=== PATIENT | female | born 1990 | race Caucasian/White ===

== ENCOUNTER 2017-05-23 19:54 | Emergency (ER) | payer BC, OTHER ==
[~2017-05-23] VITALS: Ht 170.2 cm; Wt 88.2 kg
[~2017-05-23 19:54] MED LIST: DIAZ5TAB PO
[2017-05-23 20:19] VITALS: BP 134/74
[2017-05-23 20:55] LABS: CLARITY,URINE CLEAR (Clear); COLOR,URINE YELLOW (Yellow); GLUCOSE, URINE NEGATIVE (Neg); KETONES,URINE NEGATIVE (Neg); LEUKOCYTE ESTERASE ,URINE NEGATIVE (Neg); NITRITES, URINE NEGATIVE (Neg); OCCULT BLOOD,URINE NEGATIVE (Neg); PH,URINE 6.5 (4.8-8.0); PROTEIN,URINE NEGATIVE (Neg); UROBILINOGEN,URINE 0.2 E.U/dL (0.2-1.0)
[2017-05-23 20:55] LABS: BASOPHILS % (AUTO) 0.3 % (0-1); EOSINOPHILS # (AUTO) 0.3 X10'3 (0-0.9); EOSINOPHILS % (AUTO) 2.4 % (0-6); HEMATOCRIT 41.5 % (35.0-45.0); HEMOGLOBIN 14.1 g/dl (12.0-16.0); LYMPHOCYTES # (AUTO) 3.7 X10'3 (1.1-4.8); LYMPHOCYTES % (AUTO) 32.7 % (21-51); MEAN CORPUSCULAR HEMOGLOBIN 27.1 PG (27.0-31.0); MEAN CORPUSCULAR HGB CONC 33.9 % (33.0-36.5); MEAN CORPUSCULAR VOLUME 79.9 FL (78-98); MEAN PLATELET VOLUME 6.9 FL (7.4-10.4); MONOCYTES # (AUTO) 0.7 X10'3 (0-0.9); MONOCYTES % (AUTO) 6.5 % (2-12); NEUTROPHILS # (AUTO) 6.6 X10'3 (1.8-7.7); NEUTROPHILS % (AUTO) 58.1 % (42-75); PLATELET COUNT 257 X10'3 (140-440); RED BLOOD COUNT 5.19 X10'6 (4.20-5.60); WHITE BLOOD COUNT 11.4 X10'3 (4.5-11.0)
[2017-05-23 20:57] LABS: UA COLLECTION TYPE CLN CATCH MIDSTREAM
[2017-05-23 21:17] LABS: ALANINE AMINOTRANSFERASE 26 U/L (12-78); ALBUMIN 3.8 G/DL (3.4-5.0); ALBUMIN/GLOBULIN RATIO 0.8 (1.1-1.5); ALKALINE PHOSPHATASE 84 IU/L (46-116); ANION GAP 10 (8-16); ASPARTATE AMINO TRANSFERASE 19 U/L (10-37); BILIRUBIN,TOTAL 0.7 MG/DL (0.1-1.0); BLOOD UREA NITROGEN 10 MG/DL (7-18); BUN/CREATININE RATIO 11.5 (6.6-38.0); CALCIUM 9.1 MG/DL (8.5-10.1); CHLORIDE 103 MMOL/L (99-107); CREATININE 0.87 MG/DL (0.40-0.90); GLUCOSE 106 MG/DL (70-104); LIPASE 109 U/L (73-393); POTASSIUM 3.4 MMOL/L (3.5-5.1); SODIUM 139 MMOL/L (135-145); TOTAL CARBON DIOXIDE 25.9 MMOL/L (24-32); TOTAL PROTEIN 8.5 G/DL (6.4-8.2); eGFR 78 ML/MIN
[2017-05-23 21:18] LABS: URINE HCG NEGATIVE (NEG)
[2017-05-23] MEDS ORDERED: iohexol 300mg/ml 100ml inj. ONE (21:23)
[2017-05-23] MEDS ORDERED: ONDA4TAB9 SL (22:26)
[2017-05-23] MEDS ORDERED: OMEP20CA10 PO (22:26)
[2017-05-23] MEDS ORDERED: FAMO20TA44 PO (22:26)
[2017-05-23] MEDS ORDERED: SUCR1ORA2 PO (22:26)
[2017-05-23 22:32] LABS: OCCULT BLOOD STOOL NEGATIVE (Neg)
== END 2017-05-23 23:36 | disposition home or self-care (01) ==
LOC: ER 19:55
DX: R10.9 Unspecified abdominal pain (principal); K92.2 Gastrointestinal hemorrhage, unspecified
CPT/HCPCS: 36415; 74177; 80053; 81003; 81025; 82272; 83690; 85025; 99285; J7030; Q9967

== ENCOUNTER 2018-01-15 07:00 | Outpatient (CLI) | payer BC ==
[2018-01-15] VITALS (17 sets, daily range): BP systolic 105–135; BP diastolic 67–83
[~2018-01-15 07:00] MED LIST changes: +FAMO20TA44 PO; +OMEP20CA10 PO; +SUCR1ORA2 PO
== END 2018-01-15 23:59 | disposition home or self-care (01) ==
LOC: CARD DIAG 07:00
PROVIDERS: ATTEND Internal Medicine Interventional Cardiology
DX: R55 Syncope and collapse (principal); Z79.899 Other long term (current) drug therapy
CPT/HCPCS: 93660